=== PATIENT | female | born 1990 | race African-American/Black ===

== ENCOUNTER 2018-03-19 11:19 | Inpatient (IN) | payer MEDICAID, OTHER ==
[~2018-03-19] VITALS: Ht 157.5 cm; Wt 68.7 kg
[2018-03-19 11:22] VITALS: BP 119/77; PULSE 86; RESP 16; TEMP 98.4; O2SAT 97
--- NOTE | 2018-03-19 12:11 | PD ---
HPI Chief Complaint: Psychiatric Symptoms Time Seen by Provider: 11:36 Travel History International Travel<30 days: No Contact w/Intl Traveler<30days: No Traveled to known affect area: No History of Present Illness HPI 27-year-old female presents to the ED for psychiatric evaluation by family members who are concerned for her well-being. Her aunt at bedside states that the patient has been "not herself." She is witnessed the patient walking and talking animatedly as of having a conversation when she is alone. She states that the patient has made several cryptic statements including asking her aunt to take care of her son "if anything ever happens to me." On evaluation the patient is staring off into the corner of the room. She denies SI or HI. She denies auditory or visual hallucinations. She is slow to answer any questions. She denies somatic complaints. She is resistant to history taking, possibly responding to internal stimuli. Per family members the patient agreed to seek treatment today "for her son." PFSH Past Medical History ?: Unknown Social History Tobacco Use: No Allergies-Medications (Allergen,Severity, Reaction): Coded Allergies: No Known Allergies (Unverified , 03/19/18) Review of Systems Except as stated in HPI: all other systems reviewed are Neg Physical Exam Narrative GENERAL: Well-nourished, well-developed -[place] female in no acute distress. PSYCH: Slow to answer questions, will not make eye contact. Possibly responding to internal stimuli. SKIN: Focused skin assessment warm/dry. HEAD: Normocephalic. EYES: No scleral icterus. No injection or drainage. NECK: Supple, trachea midline. No JVD or lymphadenopathy. CARDIOVASCULAR: Regular rate and rhythm without murmurs, gallops, or rubs. RESPIRATORY: Breath sounds clear and equal bilaterally. No accessory muscle use. GASTROINTESTINAL: Abdomen soft, non-tender, nondistended. MUSCULOSKELETAL: No cyanosis, or edema. Noted to walk with a normal gait. BACK: Nontender without obvious deformity. No CVA tenderness. Data Data Last Documented VS Vital Signs Date Time Temp Pulse Resp B/P (MAP) Pulse Ox O2 Delivery O2 Flow Rate FiO2 03/19/18 11:22 98.4 86 16 119/77 (91) 97 Orders Orders Complete Blood Count With Diff (03/19/18 11:36) Comprehensive Metabolic Panel (03/19/18 11:36) Thyroid Stimulating Hormone (03/19/18 11:36) Urinalysis - C+S If Indicated (03/19/18 11:36) Psych Screen (03/19/18 11:36) Drug Screen, Random Urine (03/19/18 11:36) Alcohol (Ethanol) (03/19/18 11:36) Ed Urine Pregnancytest Poc (03/19/18 11:36) Diet Regular Basic (03/19/18 Lunch) Diet Regular Basic (03/19/18 Dinner) Labs Laboratory Tests Test 03/19/18 11:51 03/19/18 12:10 White Blood Count 4.6 TH/MM3 Red Blood Count 4.37 MIL/MM3 Hemoglobin 13.2 GM/DL Hematocrit 39.2 % Mean Corpuscular Volume 89.8 FL Mean Corpuscular Hemoglobin 30.3 PG Mean Corpuscular Hemoglobin Concent 33.7 % Red Cell Distribution Width 13.2 % Platelet Count 277 TH/MM3 Mean Platelet Volume 7.7 FL Neutrophils (%) (Auto) 66.4 % Lymphocytes (%) (Auto) 22.7 % Monocytes (%) (Auto) 9.7 % Eosinophils (%) (Auto) 0.7 % Basophils (%) (Auto) 0.5 % Neutrophils # (Auto) 3.0 TH/MM3 Lymphocytes # (Auto) 1.0 TH/MM3 Monocytes # (Auto) 0.4 TH/MM3 Eosinophils # (Auto) 0.0 TH/MM3 Basophils # (Auto) 0.0 TH/MM3 CBC Comment DIFF FINAL Differential Comment Blood Urea Nitrogen 8 MG/DL Creatinine 0.76 MG/DL Random Glucose 95 MG/DL Total Protein 9.4 GM/DL Albumin 4.2 GM/DL Calcium Level 9.3 MG/DL Alkaline Phosphatase 57 U/L Aspartate Amino Transf (AST/SGOT) 15 U/L Alanine Aminotransferase (ALT/SGPT) 25 U/L Total Bilirubin 1.1 MG/DL Sodium Level 140 MEQ/L Potassium Level 4.0 MEQ/L Chloride Level 103 MEQ/L Carbon Dioxide Level 25.0 MEQ/L Anion Gap 12 MEQ/L Estimat Glomerular Filtration Rate 92 ML/MIN Thyroid Stimulating Hormone 3rd Gen 0.681 uIU/ML Ethyl Alcohol Level LESS THAN 3 MG/DL Urine Color YELLOW Urine Turbidity HAZY Urine pH 6.0 Urine Specific [place] 1.023 Urine Protein TRACE mg/dL Urine Glucose (UA) NEG mg/dL Urine Ketones 40 mg/dL Urine Occult Blood NEG Urine Nitrite NEG Urine Bilirubin NEG Urine Urobilinogen 2.0 MG/DL Urine Leukocyte Esterase LARGE Urine RBC 1 /hpf Urine WBC 1 /hpf Urine Squamous Epithelial Cells 8 /hpf Urine Transitional Epithelial Cells <1 /hpf Urine Renal Epithelial Cells <1 /hpf Urine Bacteria RARE /hpf Urine Mucus FEW /lpf Microscopic Urinalysis Comment CULT NOT INDICATED Urine Opiates Screen NEG Urine Barbiturates Screen NEG Urine Amphetamines Screen NEG Urine Benzodiazepines Screen NEG Urine Cocaine Screen NEG Urine Cannabinoids Screen NEG MDM Medical Decision Making Medical Screen Exam Complete: Yes Emergency Medical Condition: Yes Differential Diagnosis Adjustment disorder versus anxiety versus bipolar versus depression versus dementia versus electrolyte disorder versus malingering versus mood disorder versus ODD versus psychosis versus PTSD versus schizophrenia versus schizoaffective disorder versus substance-induced mood disorder versus other Narrative Course 27-year-old female presents to the ED for psychiatric evaluation by family members who are concerned for her well-being. Her aunt at bedside states that the patient has been "not herself" and has witnessed the patient walking and talking animatedly as of having a conversation when she is alone. Family member states the patient has made several cryptic statements including asking her aunt to take care of her son "if anything ever happens to me." On evaluation the patient is staring off into the corner of the room. She denies SI or HI. She denies auditory or visual hallucinations. She is slow to answer questions and concerned that she is responding to internal stimuli. Vitals reviewed. Physical exam is reassuring. I placed the place and under Carlisle act. CBC, CMP, UA unremarkable. Tox screen negative. ED urine test pending. Patient is medically clear for psychiatric evaluation. Diagnosis Primary Impression: Medical clearance for psychiatric admission Alma Delia Underwood March 19, 2018 12:11
[2018-03-19 12:13] LABS: BASOPHIL % 0.5 % (0.0-2.0); EOSINOPHIL % 0.7 % (0.0-4.0); HEMATOCRIT 39.2 % (35.0-46.0); HEMOGLOBIN 13.2 GM/DL (11.6-15.3); LYMPH % 22.7 % (9.0-44.0); MEAN CELL VOLUME 89.8 FL (80.0-100.0); MEAN CORPUSCULAR HEMOGLOBIN 30.3 PG (27.0-34.0); MEAN CORPUSCULAR HGB CONC 33.7 % (32.0-36.0); MEAN PLATELET VOLUME 7.7 FL (7.0-11.0); MONO % 9.7 % (0.0-8.0); MONOCYTE # 0.4 TH/MM3 (0-0.9); NEUT % 66.4 % (16.0-70.0); PLATELET COUNT 277 TH/MM3 (150-450); RED BLOOD COUNT 4.37 MIL/MM3 (4.00-5.30); RED CELL DISTRIBUTION WIDTH 13.2 % (11.6-17.2); WHITE BLOOD COUNT 4.6 TH/MM3 (4.0-11.0)
[2018-03-19 12:39] LABS: ALBUMIN 4.2 GM/DL (3.4-5.0); AST (GOT) 15 U/L (15-37); BLOOD UREA NITROGEN 8 MG/DL (7-18); CALCIUM 9.3 MG/DL (8.5-10.1); CHLORIDE 103 MEQ/L (98-107); CREATININE 0.76 MG/DL (0.50-1.00); GLOMERULAR FILTRATION RATE 92 ML/MIN (>89); GLUCOSE,RANDOM 95 MG/DL (74-106); SODIUM (NA) 140 MEQ/L (136-145)
[2018-03-19 12:47] LABS: BACTERIA, URINE RARE /hpf; BILIRUBIN, URINE NEG (NEG); BLOOD, URINE NEG (NEG); GLUCOSE,URINE NEG (NEG); KETONE, URINE 40 mg/dL (NEG); MUCUS URINE FEW /lpf (OCC); NITRITE,URINE NEG (NEG); RENAL EPITHELIAL CELLS <1 /hpf; SQUAMOUS EPITHELIAL CELL URINE 8 /hpf (0-5); TRANSITIONAL EPI CELLS, URINE <1 /hpf; URINE COLOR YELLOW (YELLW/STRAW); URINE LEUKOCYTE ESTERASE LARGE (NEG)
[2018-03-19 12:56] LABS: ALKALINE PHOSPHATASE 57 U/L (45-117); ALT (GPT) 25 U/L (10-53); TOTAL BILIRUBIN ADULT 1.1 MG/DL (0.2-1.0); TOTAL PROTEIN 9.4 GM/DL (6.4-8.2)
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
[2018-03-19] MEDS ORDERED: LORazepam 0.5 MG TAB PO PRN (14:45)
[2018-03-19] MEDS ORDERED: LORazepam 1 MG TAB PO PRN (14:45)
[2018-03-19] MEDS ORDERED: MAGNESIUM HYDROXIDE SUSP 30 ML CUP PO PRN (14:45)
[2018-03-19] MEDS ORDERED: ACETAMINOPHEN 325 MG TAB PO PRN (14:45)
[2018-03-19] MEDS ORDERED: ALUMINUM/MAGNESIUM/SIMETH 30 ML CUP PO PRN (14:45)
[2018-03-19] MEDS ORDERED: LORazepam 2 MG/ML VIAL IM PRN ×2 (14:45)
[2018-03-19] MEDS ORDERED: HALOPERIDOL LACTATE 5 MG/ML AMP IM PRN (15:00)
[2018-03-19] MEDS ORDERED: HALOPERIDOL LACTATE 5 MG/ML AMP IM ONE ×2 (15:45→16:00)
[2018-03-19] MEDS ORDERED: LORazepam 2 MG/ML VIAL IM ONE (15:45)
[2018-03-20 06:08] VITALS: BP 104/60; PULSE 81; RESP 16; TEMP 98.1; O2SAT 99
[2018-03-20] MEDS ORDERED: risperiDONE 1 MG TAB PO SCH (09:00)
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
[2018-03-20 11:16] LABS: BICARBONATE 30.3 MEQ/L (21.0-32.0); BLOOD UREA NITROGEN 9 MG/DL (7-18); CALCIUM 9.3 MG/DL (8.5-10.1); CHLORIDE 104 MEQ/L (98-107); CHOLESTEROL 153 MG/DL (120-200); CREATININE 0.67 MG/DL (0.50-1.00); GLOMERULAR FILTRATION RATE 129 ML/MIN (>89); GLUCOSE,RANDOM 92 MG/DL (74-106); SODIUM (NA) 140 MEQ/L (136-145); TRIGLYCERIDES 31 MG/DL (42-150)
[2018-03-20 11:32] LABS: CHOLESTEROL/ HDL RATIO 1.88 RATIO; HDL CHOLESTEROL 81.3 MG/DL (40.0-60.0)
[2018-03-20 11:33] LABS: LDL CHOLESTEROL 66 MG/DL (0-99)
[2018-03-20] MEDS ORDERED: BENZTROPINE MESYLATE 2 MG/2 ML VIAL IM PRN (12:15)
[2018-03-20] MEDS ORDERED: BENZTROPINE MESYLATE 1 MG TAB PO PRN (12:15)
[2018-03-20] MEDS ORDERED: HALOPERIDOL LACTATE 5 MG/ML AMP IM PRN ×2 (12:15)
[2018-03-20 16:45] VITALS: BP 133/80; PULSE 107; RESP 20; TEMP 97.2; O2SAT 99
[2018-03-20 17:00] VITALS: BP 107/64; PULSE 75; RESP 18; TEMP 97.6; O2SAT 99
[2018-03-20] MEDS ORDERED: GADODIAMIDE PF 287 MG/ML 5 ML VIAL (for RAD MRI) IVCONTRAST ONE (19:05)
--- NOTE | 2018-03-20 20:29 | RADRPT ---
EXAM DATE/TIME: 03/20/2018 18:50 [place] COMPARISON: No previous studies available for comparison. INDICATIONS : Psychosis. CONTRAST: 13 cc Omniscan (gadodiamide) IV MEDICAL HISTORY : None. SURGICAL HISTORY : None. ENCOUNTER: Initial ACUITY: 1 day PAIN SCORE: 0/10 LOCATION: Head. TECHNIQUE: Multiplanar, multisequence MRI of the brain was performed both prior to and following the administrat ion of paramagnetic contrast. FINDINGS: CEREBRUM: The ventricles are normal for age. No evidence of midline shift, mass lesion, hemorrhage or acute in farction. No extraaxial fluid collections are seen. The pituitary gland and suprasellar cistern are normal in configuration. WHITE MATTER: No significant signal abnormalities are seen in the white matter. POSTERIOR FOSSA: The cerebellum and brainstem are intact. The 4th ventricle is midline. The cerebellopontine angle is unremarkable. The cerebellar tonsils are normal in position. DIFFUSION IMAGING: No focal areas of restricted diffusion are seen. No evidence of acute infarction. EXTRACRANIAL: The visualized portions of the orbits and paranasal sinuses are unremarkable. POST-CONTRAST: No abnormal areas of parenchymal or dural enhancement. No evidence of blood-brain barrier breakdown. CONCLUSION: No acute disease. Akira Raymond MD on March 20, 2018 at 20:27 Board Certified Radiologist. This report was verified electronically.
[2018-03-20] MEDS: risperiDONE ODT 1 MG TAB PO SCH (20:32)
[2018-03-21 02:26] LABS: FOLATE GREATER THAN 20.0 NG/ML (3.1-17.5)
[2018-03-21 05:55] VITALS: BP 113/69; PULSE 85; RESP 16; TEMP 97.4; O2SAT 16
[2018-03-21 07:33] VITALS: O2SAT 96
[2018-03-21] MEDS: risperiDONE ODT 1 MG TAB PO SCH (08:30)
--- NOTE | 2018-03-21 10:02 | HHI.PYPN ---
Subjective Chief Complaint: Psychosis Remarks Patient seen and examined with nurse. Chart reviewed. Case discussed with nursing staff. Case discussed in treatment team. On my examination today, the patient exhibits somewhat less thought blocking. Thought process overall is somewhat more organized. She denies SI or HI. Denies allegations of suicidal statements prior to admission. Denies AVH but remains a little internally preoccupied. Denies side effects from medications. No physical complaints. Review of Systems ROS Limitations: Psychotic, Poor Historian Except as stated in HPI: all other systems reviewed are Neg Mental Status Examination Appearance: Appropriate Consciousness: Alert, Vigilant Orientation: x4 Motor Activity: Normal gait Speech: Hesitant, Slow Language: Adequate (When she opts to communicate) Fund of Knowledge: Adequate Attention and Concentration: Easily Distracted Memory: Unremarkable Mood: Sad Affect: Blunt Thought Process & Associations: Other (Slowed) Thought Content: Thought blocking (Decreasing), Delusional Hallucination Type: Other (Somewhat internally preoccupied) Delusion Type: Paranoid (Perhaps decreasing somewhat) Suicidal Ideation: No (Unreliable to contract for safety) Suicidal Plan: No Suicidal Intention: No Homicidal Ideation: No Homicidal Plan: No Homicidal Intention: No Insight: Poor Judgment: Poor Results Labs Test 03/20/18 10:07 03/20/18 21:34 Blood Urea Nitrogen 9 MG/DL Creatinine 0.67 MG/DL Random Glucose 92 MG/DL Calcium Level 9.3 MG/DL Sodium Level 140 MEQ/L Potassium Level 3.9 MEQ/L Chloride Level 104 MEQ/L Carbon Dioxide Level 30.3 MEQ/L Anion Gap 6 MEQ/L Estimat Glomerular Filtration Rate 129 ML/MIN Hemoglobin A1c 5.0 % Total Creatine Kinase 64 U/L Triglycerides Level 31 MG/DL Cholesterol Level 153 MG/DL LDL Cholesterol 66 MG/DL HDL Cholesterol 81.3 MG/DL Cholesterol/HDL Ratio 1.88 RATIO Beta HCG, Qualitative LESS THAN 1 MIU/ML Erythrocyte Sedimentation Rate 12 mm/hr Ammonia 20 MCMOL/L Vitamin B12 Level 430 PG/ML Folate GREATER THAN 20.0 NG/ML HIV (1&2) Ab and P24 Ag, 4th Gener NONREACTIVE Date/Time Source Procedure Growth Status 03/20/18 21:05 Urine Other Urine Culture Pending Received Labs reviewed. SAIGE pending. Last Impressions Brain MRI 03/20/18 0000 Signed Impressions: Service Date/Time: March 18:50 - CONCLUSION: No acute disease. Akira Raymond MD Vitals/IOs Vital Signs Date Time Temp Pulse Resp B/P (MAP) Pulse Ox O2 Delivery O2 Flow Rate FiO2 03/21/18 07:33 96 03/21/18 05:55 97.4 85 16 113/69 (84) Assessment & Plan Problem List: (1) Unspecified psychosis ICD Codes: F29 - Unspecified psychosis not due to a substance or known physiological condition Status: Acute Assessment & Plan Workup for medical/neurologic etiologies of psychosis so far unrevealing. Titrate Risperdal to 1.5 mg twice daily to target ongoing psychotic symptoms. Continue to monitor on the inpatient unit. Continue other medications and care as ordered. Justification for Cont. Inpt. Med changes. Resolving impairments in reality construction. High risk for decompensation in less restrictive environment. Discharge Planning Pending psychiatric stabilization. Request HC Surrog/Guard Advoc?: Yes Noel Garcia MD March 21, 2018 10:02
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
[2018-03-21 18:41] VITALS: BP 111/56; PULSE 99; RESP 18; TEMP 97.4; O2SAT 100
[2018-03-22 05:21] VITALS: BP 93/53; PULSE 115; RESP 17; TEMP 98.4; O2SAT 98
--- NOTE | 2018-03-22 14:27 | HHI.PYPN ---
Subjective Chief Complaint: Psychosis Remarks Pt seen and discussed with staff. Chart reviewed. Pt has been compliant with medications. No aggression.Staff report decreased bizarre behavior. Visited with family today without incident. Pt is tolerating medications without side effects and reports that her thoughts are clearer and she is less confused today. No SI/HI Mental Status Examination Appearance: Appropriate Consciousness: Alert, Vigilant Orientation: x4 Motor Activity: Normal gait Speech: Hesitant, Slow Language: Adequate (When she opts to communicate) Fund of Knowledge: Adequate Attention and Concentration: Easily Distracted Memory: Unremarkable Mood: Sad Affect: Blunt Thought Process & Associations: Other (Slowed) Thought Content: Thought blocking (mild), Delusional Hallucination Type: Other (Somewhat internally preoccupied) Delusion Type: Paranoid (Perhaps decreasing somewhat) Suicidal Ideation: No (Unreliable to contract for safety) Suicidal Plan: No Suicidal Intention: No Homicidal Ideation: No Homicidal Plan: No Homicidal Intention: No Insight: Poor Judgment: Poor Results Labs Date/Time Source Procedure Growth Status 03/20/18 21:05 Urine Other Urine Culture - Final 50-100,000 CFU/ML MIXED GRAM POSITIVE... Complete Vitals/IOs Vital Signs Date Time Temp Pulse Resp B/P (MAP) Pulse Ox O2 Delivery O2 Flow Rate FiO2 03/22/18 05:21 98.4 115 17 93/53 (66) 98 Assessment & Plan Problem List: (1) Unspecified psychosis ICD Codes: F29 - Unspecified psychosis not due to a substance or known physiological condition Status: Acute Assessment & Plan Pt improving. Continue current tx plan. Estimated LOS: days Justification for Cont. Inpt. impairments in reality testing Request HC Surrog/Guard Advoc?: Yes Molly Sharp MD March 22, 2018 14:27
[2018-03-22 17:40] VITALS: BP 102/66; PULSE 80; RESP 18; TEMP 97.7; O2SAT 99
[2018-03-23 05:51] VITALS: BP 94/51; PULSE 102; RESP 16; TEMP 98.3; O2SAT 100
--- NOTE | 2018-03-23 13:27 | HHI.PYPN ---
Subjective Chief Complaint: Psychosis Remarks Pt seen and discussed with staff. She has been compliant with medications and denies AVH. She has been coming out of room more but does not interact with others. No SI/HI. Behavior has been childlike and regressed at times today. Mental Status Examination Appearance: Appropriate Consciousness: Alert, Vigilant Orientation: x4 Motor Activity: Normal gait Speech: Hesitant, Slow Language: Adequate (When she opts to communicate) Fund of Knowledge: Adequate Attention and Concentration: Easily Distracted Memory: Unremarkable Mood: Sad Affect: Blunt Thought Process & Associations: Other (Slowed) Thought Content: Thought blocking (mild), Delusional Hallucination Type: Other (Somewhat internally preoccupied) Delusion Type: Paranoid (Perhaps decreasing somewhat) Suicidal Ideation: No (Unreliable to contract for safety) Suicidal Plan: No Suicidal Intention: No Homicidal Ideation: No Homicidal Plan: No Homicidal Intention: No Insight: Poor Judgment: Poor Results Labs Date/Time Source Procedure Growth Status 03/20/18 21:05 Urine Other Urine Culture - Final 50-100,000 CFU/ML MIXED GRAM POSITIVE... Complete Vitals/IOs Vital Signs Date Time Temp Pulse Resp B/P (MAP) Pulse Ox O2 Delivery O2 Flow Rate FiO2 03/23/18 05:51 98.3 102 16 94/51 (65) 100 Assessment & Plan Problem List: (1) Unspecified psychosis ICD Codes: F29 - Unspecified psychosis not due to a substance or known physiological condition Status: Acute Assessment & Plan Continue current tx plan. Estimated LOS: days Justification for Cont. Inpt. impairments in reality functioning Request HC Surrog/Guard Advoc?: Yes Molly Sharp MD March 23, 2018 13:27
[2018-03-23 18:33] VITALS: BP 107/60; PULSE 72; RESP 17; TEMP 98.1; O2SAT 98
[2018-03-24 05:19] VITALS: BP 93/51; PULSE 63; RESP 16; TEMP 98.5; O2SAT 96
[2018-03-24] MEDS ORDERED: PALI156P IM (10:54)
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
[2018-03-24] MEDS ORDERED: PALIPERIDONE PALMITATE 234 MG/1.5 ML SYRINGE IM ONE (11:00)
== END 2018-03-24 16:20 | disposition home or self-care (01) | DRG 885 ==
LOC: NEPJ 11:19 → NEDA 14:42 → H270 15:57 → H260 03-21 20:38
PROVIDERS: ADMIT Psychiatry & Neurology Psychiatry; ATTEND Psychiatry & Neurology Psychiatry
DX: F20.3 Undifferentiated schizophrenia (principal); F12.90 Cannabis use, unspecified, uncomplicated
CPT/HCPCS: 70553; 80048; 80053; 80061; 80307; 81001; 82140; 82550; 82607; 82746; 83036; 84443; 84703; 85025; 85652; 86038; 86592; 86703; 87086; 99285; A9579; J1630; J2060; J2426

== ENCOUNTER 2018-03-28 09:15 | Emergency (ER) | payer MEDICAID, OTHER ==
[~2018-03-28] VITALS: Ht 157.5 cm; Wt 70.0 kg
[~2018-03-28 09:15] MED LIST: PALI156P IM
[2018-03-28 09:20] VITALS: BP 104/65; PULSE 76; RESP 16; TEMP 98.3; O2SAT 97
--- NOTE | 2018-03-28 12:07 | PD ---
HPI Chief Complaint: Medical Clearance Time Seen by Provider: 11:36 Travel History International Travel<30 days: No Contact w/Intl Traveler<30days: No Traveled to known affect area: No History of Present Illness HPI Patient is a 27-year-old female with history of schizophrenia who comes in because she needs her in Leo injection. She was discharged from psychiatry 4 days ago and was told she needed to have the second injection between the and the . She went to [facility] this morning, but was told that because she is not established there, they could not administer the medication. She does have the medication with her. She called inpatient psych and they told her to come to the emergency department. She has no medical complaints at this time. She is here with her aunt who says that she is moving back to [place] where she is originally from and they will establish psychiatric care there. She has no other issues. PFS Past Medical History Psychiatric: Yes Tetanus Vaccination: Unknown Influenza Vaccination: No ?: Not Past Surgical History Surgical History: No Previous Surgery Social History Alcohol Use: No Tobacco Use: No Substance Use: No Allergies-Medications (Allergen,Severity, Reaction): Coded Allergies: No Known Allergies (Unverified , 03/28/18) Reported Meds & Prescriptions Reported Meds & Active Scripts Active Invega Sustenna Inj (Paliperidone Palmitate) 156 Mg/Ml Inj 156 Mg IM Q28D This dose of Sustenna is due no earlier than 03/28/18 and no later than 03/31/18. Review of Systems General / Constitutional: No: Fever, Chills HENT: No: Headaches, Lightheadedness Cardiovascular: No: Chest Pain or Discomfort Respiratory: No: Shortness of Breath Gastrointestinal: No: Nausea, Vomiting Musculoskeletal: No: Myalgias Skin: No Rash, No Itching Neurologic: No: Weakness, Dizziness Physical Exam Narrative GENERAL: Awake and alert, no acute distress. SKIN: Focused skin assessment warm/dry. HEAD: Atraumatic. Normocephalic. EYES: Pupils equal and round. No scleral icterus. ENT: Mucous membranes pink and moist. CARDIOVASCULAR: Regular rate and rhythm. No murmur appreciated. RESPIRATORY: No accessory muscle use. Clear to auscultation. Breath sounds equal bilaterally. MUSCULOSKELETAL: No obvious deformities. No clubbing. No cyanosis. No edema. NEUROLOGICAL: Awake and alert. No obvious cranial nerve deficits. Motor grossly within normal limits. Normal speech. Data Data Last Documented VS Vital Signs Date Time Temp Pulse Resp B/P (MAP) Pulse Ox O2 Delivery O2 Flow Rate FiO2 03/28/18 09:20 98.3 76 16 104/65 (78) 97 MDM Medical Decision Making Medical Screen Exam Complete: Yes Emergency Medical Condition: Yes Medical Record Reviewed: Yes Differential Diagnosis Encounter for medication versus psychosis versus dehydration Narrative Course Patient is a 27-year-old female who comes in because she needs her dose of in Leo. She has a medication with her. I spoke with psychiatry, who says this is the appropriate dose. The nurse did administer the medication. She was discharged home advised to follow-up with psychiatry. Advised return as needed for any worsening symptoms. Diagnosis Primary Impression: Schizophrenia Qualified Codes: F20.9 - Schizophrenia, unspecified Referrals: [facility] (Out patient) call for appointment Patient Instructions: General Instructions, Psychotic Disorder (ED) Additional Instructions: Follow-up with psychiatry. Return to the ED as needed for any worsening symptoms. Disposition: 01 DISCHARGE HOME Condition: Stable Gissel Carcamo MD March 28, 2018 12:07
== END 2018-03-28 12:32 | disposition home or self-care (01) ==
LOC: NEPD 09:15
DX: F20.9 Schizophrenia, unspecified (principal)
CPT/HCPCS: 99281